=== PATIENT | female | born 1980 | race Caucasian/White ===

== ENCOUNTER 2017-06-25 17:53 | Emergency (ER) | END 2017-06-25 20:43 | disposition home or self-care (01) ==

== ENCOUNTER 2019-01-13 10:22 | Emergency (ER) | payer MEDICAID ==
[~2019-01-13] VITALS: Ht 162.6 cm; Wt 57.2 kg
[~2019-01-13 10:22] MED LIST: ACET325T33 PO; DICY10CA40 PO; ONDA4TAB14 PO
[2019-01-13 10:26] VITALS: Ht 162.6 cm; Wt 57.2 kg
[2019-01-13 12:21] VITALS: BP 115/60; PULSE 72; RESP 20
--- NOTE | 2019-01-13 16:17 | ERD ---
ER Documentation Chief Complaint Chief Complaint vag bleed x 1 day with cramping , 9 weeks preg , 10/26 HPI 38-year-old female presented to ED for vaginal bleeding abdominal cramping. Patient is 9 weeks . Patient states she is G2, P1, A0. Patient states she has no past medical history she has no allergies to medication and that she is seen an OB for this she just does not remember the name. Patient states she has had no other complications in any of her other pregnancies and she denies dysuria. Patient states the crampy pain is a 4 out of 10 ROS All systems reviewed and are negative except as per history of present illness. Medications Home Meds Active Scripts Acetaminophen* (Tylenol*) 325 Mg Tablet, 1 TAB PO Q6 PRN for PAIN AND OR ELEVATED TEMP, #20 TAB Prov:RADHA CLAY PA-C 01/13/19 Ondansetron (Ondansetron Odt) 4 Mg Tab.rapdis, 4 MG PO Q6H PRN for NAUSEA AND/OR VOMITING, #20 TAB Prov:BLAIR LUCIO MD 06/25/17 Dicyclomine HCl (Dicyclomine HCl) 10 Mg Capsule, 10 MG PO QID PRN for abdominal cramping, #30 CAP Prov:BLAIR LUCIO MD 06/25/17 Allergies Allergies: Coded Allergies: No Known Allergy (Unverified , 01/13/19) PMhx/Soc Medical and Surgical Hx: pt denies Medical Hx, pt denies Surgical Hx History of Surgery: No Anesthesia Reaction: No Hx Neurological Disorder: No Hx Respiratory Disorders: No Hx Cardiac Disorders: No Hx Psychiatric Problems: No Hx Miscellaneous Medical Probl: No Hx Alcohol Use: No Hx Substance Use: No Hx Tobacco Use: No Smoking Status: Never smoker FmHx Family History: No diabetes, No coronary disease, No other Physical Exam Vitals Vital Signs Date Temp Pulse Resp B/P (MAP) Pulse Ox O2 O2 Flow FiO2 Time Delivery Rate 01/13/19 98.4 72 20 115/60 100 Room Air 12:21 (78) 01/13/19 98.2 66 18 117/58 100 10:26 (77) Physical Exam GENERAL: Moderate distress HEENT: Atraumatic. Conjunctivae are pink. Pupils equal, round, and reactive to light. There is no scleral icterus. Tympanic membranes clear bilaterally. Oropharynx clear. No nystagmus or photophobia. NECK: C-spine is soft and supple. There is no meningismus. There is no cervical lymphadenopathy. CHEST: Clear to auscultation bilaterally. There are no rales, wheezes or rhonchi. HEART: Regular rate and rhythm. No murmurs, clicks, rubs or gallops. ABDOMEN:Soft, nontender and nondistended. Good bowel sounds. No rebound or guarding. No gross peritonitis. No gross organomegaly or masses. No Canchola sign or McBurney point tenderness. BACK: No midline or flank tenderness. Result Diagram: 01/13/19 1100 Results 24 hrs Laboratory Tests Test 01/13/19 10:59 01/13/19 11:00 Urine Color STRAW Urine Clarity SLIGHTLY CLOUDY Urine pH 6.0 Urine Specific [place] 1.003 Urine Ketones NEGATIVE mg/dL Urine Nitrite NEGATIVE mg/dL Urine Bilirubin NEGATIVE mg/dL Urine Urobilinogen NEGATIVE mg/dL Urine Leukocyte Esterase NEGATIVE Hong/ul Urine Microscopic RBC 1 /HPF Urine Microscopic WBC 3 /HPF Urine Squamous Epithelial Cells MODERATE /HPF Urine Bacteria FEW /HPF Urine Hemoglobin 3+ mg/dL Urine Glucose NEGATIVE mg/dL Urine Total Protein NEGATIVE mg/dl White Blood Count 7.7 10^3/ul Red Blood Count 6.17 10^6/ul Hemoglobin 13.0 g/dl Hematocrit 41.8 % Mean Corpuscular Volume 67.7 fl Mean Corpuscular Hemoglobin 21.1 pg Mean Corpuscular Hemoglobin Concent 31.1 g/dl Red Cell Distribution Width 14.3 % Platelet Count 398 10^3/UL Mean Platelet Volume 10.1 fl Immature Granulocytes % 0.300 % Neutrophils % 59.7 % Lymphocytes % 30.9 % Monocytes % 5.7 % Eosinophils % 2.9 % Basophils % 0.5 % Nucleated Red Blood Cells % 0.0 /100WBC Immature Granulocytes # 0.020 10^3/ul Neutrophils # 4.6 10^3/ul Lymphocytes # 2.4 10^3/ul Monocytes # 0.4 10^3/ul Eosinophils # 0.2 10^3/ul Basophils # 0.0 10^3/ul Nucleated Red Blood Cells # 0.0 10^3/ul Beta HCG, Quantitative 4056.4 mIU/ml Procedures/MDM ED course: The patient was stable throughout the ED course. The patient and/or family informed of laboratory and diagnostic imaging results throughout the ED course. Diagnostic imaging: Read by radiologist Dr. Martinez PROCEDURE: Obstetrical ultrasound . CLINICAL INDICATION: Vaginal bleeding TECHNIQUE: Multiple sonographic images of the pelvis were obtained utilizing a transabdominal and endovaginal technique. The images were reviewed on a PACS workstation. COMPARISON: None. FINDINGS: There is a single intrauterine present with a gestational sac measuring 3.3 cm which corresponds to a calculated gestational age of 8 weeks and 3 days. No heart tones are identified. There is a tiny pole measuring 0.2 cm. The right ovary measures 1.8 x 1.1 x 1.3 cm. The left ovary measures 2.1 x 1.2 x 1.4 cm. No abnormal adnexal masses are present. No significant free fluid is present within the pelvis. RPTAT: AA IMPRESSION: Single intrauterine at 8 weeks and 3 days. NO HEART TONES NOTED, CONSISTENT WITH DEMISE. Medical decision making: This is a 38-year-old female 9 weeks who presents with vaginal bleeding. Vital signs were reviewed. Patient was afebrile. Patient was hemodynamically stable. Urine test was positive. Quantitative b-HCG was 4056.4. Patient is Rh+.. CBC showed no evidence of systemic infection or severe anemia. Patient's blood work showed no signs of infection UA showed no signs of UTI. Ultrasound indicated demise with no detectable heart tones. Advised the patient that there were no detectable heart tones on ultrasound that is consistent with demise. Advised the patient she needs to contact her OB as soon as possible for further work-up and treatment. The patient believes she can get into her OB tomorrow. Given these findings, the patients presentation is most consistent with incomplete versus threatened . I have a much lower clinical concern for ectopic , ruptured ectopic , molar , subchorionic hematoma, spontaneous , placental abruption, placental previa, vasa previa, uterine rupture, anembryonic . I advised the patient that she needs to get in with her OB tomorrow to schedule a procedure. I advised the patient that if her symptoms worsen or she developed worsening bleeding worsening abdominal pain fever chills or any worsening symptoms to return to ER immediately. Patient plans to call he r OB today to get into appointment tomorrow. All questions were answered upon discharge patient was stable prior to leaving the ED. The patient is in agreement to the treatment plan. Prescription for home: Acetaminophen I have discussed with the patient proper use and common side effects to expert with the medication . I advised the patient/family to speak with the pharmacist dispensing the medication to be advised of any potential drug interactions with other medication or supplements they may be taking. Discharge: At this time, patient is stable for discharge and outpatient management. I have instructed the patient to follow-up with his\her primary care physician in 1 to 2 days. I have discussed with the patient the possibility of needing to see a specialist for further work-up and imaging studies if symptoms persist. I have instructed the patient to promptly return to the ER for any new or worsening symptoms including increased pain, fever, nausea, vomiting, weakness or LOC. The patient and\or family expressed understanding of and agreement with this plan. All questions were answered. Home care instructions were provided. Disclaimer: Inadvertent spelling and grammatical errors are likely due to EHR\dictation software use and do not reflect on the overall quality of patient care. Also, please note that the electronic time recorded on the note does not necessarily reflect the actual time of the patient encounter. Departure Diagnosis: Primary Impression: demise Additional Impression: Vaginal bleeding in patient at less than 20 weeks gestation Condition: Stable Patient Instructions: Miscarriage (Incomplete) Referrals: COMMUNITY CLINICS YOU HAVE RECEIVED A MEDICAL SCREENING EXAM AND THE RESULTS INDICATE THAT YOU DO NOT HAVE A CONDITION THAT REQUIRES URGENT TREATMENT IN THE EMERGENCY DEPARTMENT. FURTHER EVALUATION AND TREATMENT OF YOUR CONDITION CAN WAIT UNTIL YOU ARE SEEN IN YOUR DOCTORS OFFICE WITHIN THE NEXT 1-2 DAYS. IT IS YOUR RESPONSIBILITY TO MAKE AN APPOINTMENT FOR FOLOW-UP CARE. IF YOU HAVE A PRIMARY DOCTOR --you should call your primary doctor and schedule an appointment IF YOU DO NOT HAVE A PRIMARY DOCTOR YOU CAN CALL OUR PHYSICIAN REFERRAL HOTLINE AT IF YOU CAN NOT AFFORD TO SEE A PHYSICIAN YOU CAN CHOSE FROM THE FOLLOWING [facility] [address] [facility] [address] [facility]. [facility] [address] [facility] [address] [facility]. [facility] [address] [facility]. [address] [facility]. [facility] YOU HAVE RECEIVED A MEDICAL SCREENING EXAM AND THE RESULTS INDICATE THAT YOU DO NOT HAVE A CONDITION THAT REQUIRES URGENT TREATMENT IN THE EMERGENCY DEPARTMENT. FURTHER EVALUATION AND TREATMENT OF YOUR CONDITION CAN WAIT UNTIL YOU ARE SEEN IN YOUR DOCTORS OFFICE WITHIN THE NEXT 1-2 DAYS. IT IS YOUR RESPONSIBILITY TO MAKE AN APPOINTMENT FOR FOLOW-UP CARE. IF YOU HAVE A PRIMARY DOCTOR --you should call your primary doctor and schedule and appointment IF YOU DO NOT HAVE A PRIMARY DOCTOR YOU CAN CALL OUR PHYSICIAN REFERRAL HOTLINE AT . IF YOU CAN NOT AFFORD TO SEE A PHYSICIAN YOU CAN CHOSE FROM THE FOLLOWING [facility] INSTITUTIONS: [facility] [address] [place] [address] [facility] [address] [place] [address] [facility] [address] [place] [address] BORING MACHINE OPER[place] [address] [facility] [address] [place], [place] [id number] OFFICE FAX CHACHA ROSSI [address] [place], [place] [phone] [address]ACK [address] [address] [place], [place] [phone] [place] [address], [address], [facility] [address] [place] [address] [address] [place], [place] [phone] [facility] [address] [address] [place] [address] [address] [facility] [id number] - DR HOLT, VARINDER [address], [place] [address] DR SEGOVIA, MATTEO [address] [facility]. [address], [place] [address] DR GARZA, FARID [address] [place] [address] Additional Instructions: Llame a hsieh doctor MAANA y laura alee nneka para el mismo da.Dle a la secretaria que le instruimos hacer esta nneka. Llame si hsieh condicin se empeora antes de la nneka. Specialist:Usted tiene alee condicin mdica que requiere que jorge luis a un especialista dentro de los prximos 1-2 patterson.POR FAVOR,CON HSIEH SEGUIMIENTO DE PRIMARIA PHSICIAN refferal. SI USTED NO TIENE UN MDICO GENERAL Y / O USTED NO PUEDE PAGAR lizzy a un mdico,los siguientes perea RECURSOS sido suministrado a usted. ES HSIEH RESPONSABILIDAD PARA SER VISTOS POR EL ESPECIALISTA: RADHA CLAY PA-C Jan 13, 2019 16:17
== END 2019-01-13 12:23 | disposition home or self-care (01) ==
LOC: FTE 10:22
DX: O02.1 Missed abortion (principal); R10.9 Unspecified abdominal pain
CPT/HCPCS: 36415; 76801; 76817; 81001; 84702; 85025; 86900; 86901; 87086; Z7502

== ENCOUNTER 2019-01-16 11:50 | Emergency (ER) | payer MEDICAID ==
[~2019-01-16] VITALS: Ht 167.6 cm; Wt 57.0 kg
[2019-01-16 11:52] VITALS: BP 129/62; PULSE 76; RESP 20; Ht 167.6 cm; Wt 57.0 kg
== END 2019-01-16 15:23 | disposition home or self-care (01) ==
LOC: FTE 11:50
DX: O02.1 Missed abortion (principal)
CPT/HCPCS: 76801; 76817; Z7502